=== PATIENT | female | born 1995 ===

== ENCOUNTER 2017-12-22 11:45 | Emergency (ER) | payer MEDICAID ==
--- NOTE | 2017-12-22 13:32 | UC ---
[facility] Dental HPI - HPI Summary HPI Summary: Pain in left lower wisdom tooth - History of Current Complaint Chief Complaint: UCDentalProblem Stated Complaint: DENTAL PAIN Time Seen by Provider: 12/22/17 13:17 Hx Obtained From: Patient Hx Last Menstrual Period: IUD ?: No Onset/Duration: Sudden Onset, Lasting Days Severity: Moderate Pain Intensity: 6 Related History: Previous Dental Care on Same Tooth, Swelling - Allergies/Home Medications Allergies/Adverse Reactions: Allergies Allergy/AdvReac Type Severity Reaction Status Date / Time MS Ibuprofen Allergy Mild Nausea And Verified 12/22/17 12:43 Vomiting PMH/Surg Hx/FS Hx/Imm Hx Previously Healthy: Yes - Surgical History Surgical History: None - Family History Known Family History: Negative: Cardiac Disease, Hypertension - Social History Alcohol Use: None Substance Use Type: None Smoking Status (MU): Light Every Day Tobacco Smoker Type: Cigarettes Amount Used/How Often: 5-6 CIGS/DAY Review of Systems Constitutional: Negative Skin: Negative Eyes: Negative ENT: Dental Pain Respiratory: Negative Cardiovascular: Negative Gastrointestinal: Negative Genitourinary: Negative Motor: Negative Neurovascular: Negative Musculoskeletal: Negative Neurological: Negative Psychological: Negative Is Patient Immunocompromised?: No All Other Systems Reviewed And Are Negative: Yes Physical Exam Triage Information Reviewed: Yes Appearance: Well-Appearing, Well-Nourished, Pain Distress Vital Signs: Initial Vital Signs Temp 99 F 12/22/17 12:44 Pulse 82 12/22/17 12:44 BP 110/63 12/22/17 12:44 Pulse Ox 97 12/22/17 12:44 Vital Signs Reviewed: Yes Eye Exam: Normal ENT Exam: Normal ENT: Positive: Pharyngeal erythema Dental Exam: Normal Dental: Positive: Gross Decay/Caries @, Dental Fracture @, Cellulitis @ - potieror lower left jaw, Cervical Lymphadenopathy Neck exam: Normal Neck: Positive: Supple, Nontender, Enlarged Nodes @ - left submandibular Respiratory Exam: Normal Respiratory: Positive: Chest non-tender, Lungs clear, Normal breath sounds Cardiovascular Exam: Normal Cardiovascular: Positive: RRR, No Murmur, Pulses Normal Abdominal Exam: Normal Abdomen Description: Positive: Nontender, No Organomegaly, Soft Bowel Sounds: Positive: Present Musculoskeletal Exam: Normal Musculoskeletal: Positive: Strength Intact, ROM Intact, No Edema Neurological Exam: Normal Psychological Exam: Normal Skin Exam: Normal Dental Complaint Course/Dx - Course Course Of Treatment: hx obtained, exam performed ,meds reviewed, treated for infected tooth and pain - Differential Dx/Diagnosis Differential Diagnosis/Dx: Dental Abscess Provider Diagnoses: tooth pain, lymphadenopathy, infected tooth Discharge - Discharge Plan Condition: Stable Disposition: HOME Patient Education Materials: How to Stop Smoking (ED), Toothache (ED) Referrals: ARELY Mann [Primary Care Provider] - Additional Instructions: 1. use the medication as prescribed. 2. Increase your fluid intake 3. Salt water gargles frequently 4. warm compress to the area.
[2017-12-22] MEDS ORDERED: Ketorolac INJ* 30 MG/ML 1 ML VIAL IM ONE (13:38)
== END 2017-12-22 14:12 | disposition home or self-care (01) ==
LOC: UCCORT 11:45
DX: K08.89 Other specified disorders of teeth and supporting structures (principal); R59.1 Generalized enlarged lymph nodes; K04.7 Periapical abscess without sinus; Z72.0 Tobacco use
CPT/HCPCS: 96372; 99202; G0463; J1885

== ENCOUNTER 2018-02-23 13:34 | Emergency (ER) | payer MEDICAID, OTHER ==
[2018-02-23 14:36] VITALS: BP 100/56
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
== END 2018-02-23 14:59 | disposition home or self-care (01) ==
LOC: UCCORT 13:34
DX: M54.5 Low back pain (principal); G89.29 Other chronic pain; F17.210 Nicotine dependence, cigarettes, uncomplicated
CPT/HCPCS: 99212; G0463